=== PATIENT | male | born 1945 | race Caucasian/White ===

== ENCOUNTER → 2017-02-13 09:03 | Outpatient (CLI) | payer MEDICARE, OTHER ==
[2017-02-13 10:52] LABS: BASOPHILS 0.4 % (0-2); EOSINOPHILS 2.5 % (0-7); HEMATOCRIT 43.8 % (42.0-54.0); HEMOGLOBIN 14.8 g/dL (13.5-17.5); IMMATURE GRANULOCYTES 0.1 % (0-5); LYMPHOCYTES 25.6 % (15-50); MCH 31.8 pg (26.0-34.0); MCHC 33.8 g/dL (31.0-37.0); MEAN PLATELET VOLUME 9.6 fL (7.4-10.4); NEUTROPHILS 64.4 % (40-80); PLATELET COUNT 166 10x3/uL (130-400); RBC 4.66 10x6/uL (4.20-6.10); RDW 12.9 % (11.5-14.5); WBC 6.7 10x3/uL (4.8-10.8)
[2017-02-13 11:09] LABS: HEMOGLOBIN A1C 6.2 % (4.8-6.0)
[2017-02-13 11:19] LABS: ALBUMIN 3.8 g/dL (3.4-5.0); ALKALINE PHOSPHATASE 86 U/L (46-116); ALT (SGPT) 27 U/L (10-68); CALC OSMOLALITY 282 mosm/kg (275-300); CALCIUM 8.2 mg/dL (8.5-10.1); CARBON DIOXIDE 31.2 mmol/L (21.0-32.0); CHLORIDE - SERUM 103 mmol/L (98-107); CREATININE - SERUM 0.8 mg/dL (0.6-1.3); GLUCOSE 227 mg/dL (74-106); POTASSIUM - SERUM 4.5 mmol/L (3.5-5.1); PROTEIN - SERUM 6.8 g/dL (6.4-8.2); SODIUM 138 mmol/L (136-145); T4 THYROXINE 5.5 ug/dL (4.7-13.3); THYROID STIMULATING HORMONE 1.88 uIU/mL (0.36-3.74); UREA NITROGEN 12 mg/dL (7-18); eGFR NON AFRICAN AMERICAN > 90 mL/min (90-120)
[2017-02-14 06:13] LABS: RAPID PLASMA REAGIN Non Reactive (Non Reactive)
[2017-02-14 08:19] LABS: FOLATE (FOLIC ACID) - SERUM 13.5 ng/mL (>3.0)
== END | disposition home or self-care (01) ==
LOC: D.LAB 02-07 08:15 → D.CT 02-07 08:30 → D.CN 02-07 10:00 → D.LAB 02-07 10:00 → D.US 02-07 10:00 → D.LAB 02-07 11:15 → D.CN 02-10 10:00 → D.LAB 02-10 11:15 → D.CT 10:00 → D.US 10:00 → D.CN 11:00
PROVIDERS: Psychiatry & Neurology Neurology
DX: G20 Parkinson's disease (principal); G60.9 Hereditary and idiopathic neuropathy, unspecified; E11.40 Type 2 diabetes mellitus with diabetic neuropathy, unspecified

== ENCOUNTER → 2019-08-01 13:37 | Outpatient (CLI) | payer MEDICARE, OTHER | END | disposition home or self-care (01) | LOC: D.HCCECHO 13:37 | PROVIDERS: ATTEND Internal Medicine Cardiovascular Disease | DX: I35.1 Nonrheumatic aortic (valve) insufficiency (principal) ==